=== PATIENT | female | born 1985 | race Caucasian/White ===

== ENCOUNTER → 2018-03-09 | Outpatient (REF) | payer BC, OTHER ==
[2018-03-09 13:54] LABS: HCG, SERUM QUANTITATIVE 752 MIU/ML
== END ==
LOC: M LAB REF 12:54
DX: O36.80X0 Pregnancy with inconclusive fetal viability, not applicable or unspecified (principal); Z3A.00 Weeks of gestation of pregnancy not specified
CPT/HCPCS: 84702

== ENCOUNTER → 2018-04-13 | Outpatient (REF) | payer OTHER ==
[2018-04-13 15:35] LABS: HEMATOCRIT 37.6 % (36.0-47.0); HEMOGLOBIN 12.7 g/dl (12.0-15.5); MEAN CORPUSCULAR HEMOGLOBIN 30.2 pg (27.0-33.0); MEAN CORPUSCULAR HGB CONC 33.8 g/dl (32.0-36.5); MEAN CORPUSCULAR VOLUME 89.5 fl (80.0-96.0); PLATELET COUNT, AUTOMATED 281 10^3/uL (150-450); RED CELL DISTRIBUTION WIDTH 12.5 % (11.5-14.5); WHITE BLOOD COUNT 9.7 10^3/uL (4.0-10.0)
[2018-04-13 16:12] LABS: HCG, SERUM QUANTITATIVE 112843 MIU/ML
[2018-04-16 14:08] LABS: HBsAg Prenatal NEGATIVE (NEGATIVE)
[2018-04-16 14:09] LABS: HEPATITIS C VIRUS ABY INDEX 0.1 INDEX (<0.8)
[2018-04-16 15:00] LABS: RUBELLA IgG QUALITATIVE IMMUNE (IMMUNE)
[2018-04-16 15:29] LABS: HIV 1&2 SCREEN CENTAUR NEGATIVE (NEGATIVE)
== END ==
LOC: M LAB REF 15:13
DX: Z34.81 Encounter for supervision of other normal pregnancy, first trimester (principal)

== ENCOUNTER → 2018-06-12 | Outpatient (REF) | payer OTHER ==
[2018-06-12 17:43] LABS: CHLAMYDIA DNA AMPLIFICATION NEGATIVE (NEGATIVE); GC DNA AMPLIFICATION NEGATIVE (NEGATIVE)
== END ==
LOC: M LAB REF 12:57
DX: Z34.82 Encounter for supervision of other normal pregnancy, second trimester (principal); Z36.89 Encounter for other specified antenatal screening

== ENCOUNTER → 2018-08-21 | Outpatient (CLI) | payer BC, OTHER ==
[2018-08-21 10:12] LABS: HEMATOCRIT 29.5 % (36.0-47.0); HEMOGLOBIN 9.9 g/dl (12.0-15.5); MEAN CORPUSCULAR HEMOGLOBIN 30.2 pg (27.0-33.0); MEAN CORPUSCULAR HGB CONC 33.6 g/dl (32.0-36.5); MEAN CORPUSCULAR VOLUME 89.9 fl (80.0-96.0); PLATELET COUNT, AUTOMATED 230 10^3/uL (150-450); RED BLOOD COUNT 3.28 10^6/uL (4.00-5.40); RED CELL DISTRIBUTION WIDTH 12.8 % (11.5-14.5)
[2018-08-21 10:37] LABS: GLUCOSE CHALLENGE TEST 1 HOUR 101 MG/DL (LESS THAN 140)
[2018-08-22 09:13] LABS: AB SCREEN (INDIRECT COOMBS)VIS 1 1
== END ==
LOC: M LAB 08:39
DX: Z34.82 Encounter for supervision of other normal pregnancy, second trimester (principal)
CPT/HCPCS: 82950

== ENCOUNTER → 2018-10-09 | Outpatient (REF) | payer OTHER | LOC: M LAB REF 13:02 | PROVIDERS: ATTEND Obstetrics & Gynecology | DX: Z34.83 Encounter for supervision of other normal pregnancy, third trimester (principal) ==

== ENCOUNTER 2018-11-11 05:31 | Inpatient (IN) | payer BC, OTHER ==
[~2018-11-11] VITALS: Ht 160 cm; Wt 92.7 kg
[2018-11-11] MEDS ORDERED: PRENTAB55 PO (05:37)
[2018-11-11 05:47] VITALS: BP 143/82
[2018-11-11] MEDS ORDERED: LACTATED RINGER'S 1000 ML IV STA (06:24)
[2018-11-11 06:53] LABS: HEMATOCRIT 35.4 % (36.0-47.0); MEAN CORPUSCULAR HGB CONC 33.9 g/dl (32.0-36.5); MEAN CORPUSCULAR VOLUME 88.5 fl (80.0-96.0); PLATELET COUNT, AUTOMATED 231 10^3/uL (150-450); WHITE BLOOD COUNT 18.5 10^3/uL (4.0-10.0)
[2018-11-11] MEDS ORDERED: FENTANYL 2MCG/ML ROPIVACAINE 0.2% IN 0.9% NACL 100ML IVBAG As Ordered ONE (07:07)
[2018-11-11 07:53] VITALS: BP 139/83
[2018-11-11] MEDS ORDERED: OXYTOCIN 30 UNITS IN 0.9% NaCl 500ML IV BAG (J2590) As Ordered ONE (08:03)
[2018-11-11] MEDS ORDERED: LR 1,000 ML IV SCH (09:44)
[2018-11-11] MEDS ORDERED: OXYTOCIN DRIP 30 UNITS in APPROPRIATE DILUENT 1 EA IV SCH (09:46)
[2018-11-11 09:56] VITALS: BP 135/64
[2018-11-11 09:56] LABS: CORD GAS ABE A -5.6; CORD GAS HCO3 A 22.9 MEQ/L; CORD GAS O2 SAT A 47.5 %; CORD GAS PCO2 A 55.8 mmHg; CORD GAS PH A 7.231 UNITS; CORD GAS PO2 A 24.2 mmHg; CORD GAS SBC A 18.7 MEQ/L; CORD GAS TCO2 A 24.6 MEQ/L
[2018-11-11 09:57] LABS: CORD GAS HCO3 V 18.5 MEQ/L; CORD GAS O2 SAT V 67.8 %; CORD GAS PCO2 V 37.5 mmHg; CORD GAS PH V 7.31 UNITS; CORD GAS PO2 V 28.9 mmHg; CORD GAS SBC V 18.2 MEQ/L; CORD GAS TCO2 V 19.6 MEQ/L
[2018-11-11] MEDS ORDERED: MEASLES,MUMPS,RUBELLA VACCINE INJ (MMR-II) (90707) SC SCH (10:00)
[2018-11-11] MEDS ORDERED: RHOGAM 300 MCG (1500 IU) INJ (J2790) IM SCH (10:00)
[2018-11-11] MEDS ORDERED: MOM 30ML SUSPENSION UDC PO PRN (10:00)
[2018-11-11] MEDS ORDERED: DIBUCAINE 1% OINTMENT 30GM TOP PRN (10:00)
[2018-11-11] MEDS ORDERED: ACETAMINOPHEN 500 MG TAB PO PRN (10:00)
[2018-11-11] MEDS ORDERED: METHYLERGONOVINE MALEATE 0.2 MG TAB PO PRN (10:00)
[2018-11-11] MEDS ORDERED: ANUSOL HC CREAM 30GM TOP PRN (10:00)
[2018-11-11 10:14] VITALS: BP 112/96
[2018-11-11] MEDS: IBUPROFEN 800 MG TAB PO PRN ×2 (12:50→20:43)
[2018-11-11 13:29] VITALS: BP 118/57
[2018-11-11 18:54] VITALS: BP 133/71
[2018-11-11] MEDS: DOCUSATE SODIUM 100 MG CAP PO SCH (20:40)
--- NOTE | 2018-11-11 21:42 | DN ---
DATE OF DELIVERY: 11/11/2018 TIME OF : 0924 hours. GENDER: Female. SCORES: 9 and 9. WEIGHT: 3930 grams or 8 pounds 12 ounces. LACERATIONS: None. ESTIMATED BLOOD LOSS: 300 mL. ANESTHESIA: None. COUNTS: Five laparotomy sponges accounted for prior to and after delivery. Two sharps removed from the delivery field. DELIVERY NOTE: On 11/11/2018, at 0924 hours, Mrs. Phillips, a 32-year-old, 4, now para 4, had a spontaneous vaginal delivery of a live born female , scores 9 and 9, weight was 8 pounds 12 ounces or 3930 grams. Head was delivered occiput anterior (OA) over intact perineum. There was a nuchal cord which was manually reduced followed by delivery of the shoulders and corpus. was handed to the mom with a good cry. Cord was then clamped times two and was cut. Cord gases were obtained. Placenta was then drained and delivered grossly intact. A premixed bag of 500 mL of normal saline with 30 units of Pitocin was bolused along with uterine massage until the uterus was firm. On inspection, cervix, vagina, and perineum was grossly intact and hemostatic. Mother and baby recovering in stable condition. The patient has decided to name her daughter
--- NOTE | 2018-11-12 02:19 | HPE ---
DATE OF ADMISSION: 11/11/2018 REASON FOR ADMISSION: Active labor. HISTORY OF PRESENT ILLNESS: This patient is a 32-year-old 4, para 3 who presents at 39 weeks, 6 days estimated gestational age with complaints of contractions. She reports worsening of contractions throughout the morning that have increased in intensity and frequency. She reports active movement. She denies any vaginal bleeding or leakage of fluid. Her course has been unremarkable. She initiated care in the first trimester with [facility] and has been appropriate throughout. PAST MEDICAL HISTORY: None. PAST SURGICAL HISTORY: She has had two loop electrosurgical excision procedure (LEEPs). PAST OBSTETRICAL HISTORY: She is a 4, para 3. She has had three uncomplicated vaginal deliveries. She is proven to 9 pounds. MEDICATIONS: Her medications include: - vitamins ALLERGIES: She has no known drug allergies. SOCIAL HISTORY: She denies any alcohol, tobacco or drug use in her . PHYSICAL EXAMINATION: On physical examination, VITAL SIGNS: Her blood pressure is slightly elevated. She is afebrile. She has category 1 heart tracing with contractions on tocometer. GENERAL APPEARANCE: Well-appearing in no acute distress. LUNGS: Clear to auscultation bilaterally. CARDIOVASCULAR: Heart regular rate and rhythm. ABDOMEN: Her abdomen is soft, gravid and nontender. Estimated weight (EFW) is 3800 grams. CERVICAL EXAMINATION: She was 5 cm dilated, completely effaced, 0 station. ASSESSMENT: 1. This patient is a 32-year-old 4, para 3 at 39 weeks and 6 days estimated gestational age in active labor. 2. Reassuring status. PLAN: 1. Admit to labor and delivery, complete blood count (CBC), RPR, type and screen. 2. The patient is a good candidate for an epidural. 3. Anticipate spontaneous vaginal delivery.
--- NOTE | 2018-11-12 05:42 | NUR ---
L&D Note: S: Doing well w/o complaints. + voids, + ambulation and pain well controlled. O: vss, AF gen: well appearing abd: soft, nttp, FF@U-2 ext: neg calf tenderness A/P: PPD#1 s/p - recovering in stable condition -continue routine care -d/c plans for tomorrow Tessa Hoffman MD
[2018-11-12 06:00] VITALS: BP 111/57
[2018-11-12] MEDS: IBUPROFEN 800 MG TAB PO PRN (08:38)
[2018-11-12] MEDS: DOCUSATE SODIUM 100 MG CAP PO SCH (08:38)
[2018-11-12] MEDS ORDERED: PRENATAL VITAMINS CHEWABLE TABLET PO SCH (09:00)
[2018-11-12] MEDS ORDERED: COLA100C5 PO (09:08)
[2018-11-12] MEDS ORDERED: MOM30SS PO (09:08)
[2018-11-12] MEDS ORDERED: MAPA500T2 PO (09:09)
[2018-11-12] MEDS ORDERED: IBUP-1114 PO ×2 (09:10→09:11)
== END 2018-11-12 14:20 | disposition home or self-care (01) | DRG 560 ==
LOC: M LDO 05:31 → M LDI 05:49 → M OBS 12:13
PROVIDERS: ADMIT Obstetrics & Gynecology; ATTEND Obstetrics & Gynecology
PROC: 10E0XZZ Delivery of Products of Conception, External Approach (ICD-10-PCS; principal; 2018-11-11)
DX: O69.82X0 Labor and delivery complicated by other cord entanglement, without compression, not applicable or unspecified (principal); Z37.0 Single live birth; Z3A.39 39 weeks gestation of pregnancy

== ENCOUNTER → 2019-07-02 | Outpatient (REF) | payer OTHER ==
[~2019-07-02] MED LIST: COLA100C5 PO; IBUP-1114 PO; MAPA500T2 PO; MOM30SS PO; PRENTAB55 PO
[2019-07-05 14:22] LABS: HPV HYBRID CAPTURE II Negative (Negative)
== END ==
LOC: M LAB REF 12:52
PROVIDERS: ATTEND Specialist
DX: Z12.4 Encounter for screening for malignant neoplasm of cervix (principal)
CPT/HCPCS: 87624; G0123

== ENCOUNTER → 2019-08-02 | Outpatient (CLI) | payer OTHER | LOC: M SMT 12:58 | PROVIDERS: ATTEND Specialist | DX: Z34.81 Encounter for supervision of other normal pregnancy, first trimester (principal); Z3A.00 Weeks of gestation of pregnancy not specified ==

== ENCOUNTER → 2019-08-22 | Outpatient (REF) | payer OTHER | LOC: M LAB REF 12:01 | PROVIDERS: ATTEND Nurse Practitioner Family | DX: J02.9 Acute pharyngitis, unspecified (principal) ==

== ENCOUNTER → 2019-09-19 | Outpatient (CLI) | payer OTHER ==
[2019-09-20 10:09] LABS: BASO % 0.4 % (0.0-1.0); EOS # 0.2 10^3/uL (0.0-0.5); EOS % 1.8 % (0.0-3.0); HEMATOCRIT 36.9 % (36.0-47.0); HEMOGLOBIN 11.8 g/dl (12.0-15.5); LYMPH # 1.7 10^3/uL (1.5-5.0); LYMPH % 20.8 % (24.0-44.0); MEAN CORPUSCULAR HEMOGLOBIN 28.9 pg (27.0-33.0); MEAN CORPUSCULAR VOLUME 90.2 fl (80.0-96.0); MONO # 0.7 10^3/uL (0.0-0.8); MONO % 8.6 % (0.0-5.0); NEUTROPHILS # 5.5 10^3/uL (1.5-8.5); NEUTROPHILS % 67.9 % (36.0-66.0); PLATELET COUNT, AUTOMATED 250 10^3/uL (150-450); RED BLOOD COUNT 4.09 10^6/uL (4.00-5.40); WHITE BLOOD COUNT 8.1 10^3/uL (4.0-10.0)
[2019-09-20 11:17] LABS: CHLAMYDIA DNA AMPLIFICATION NEGATIVE (NEGATIVE); GC DNA AMPLIFICATION NEGATIVE (NEGATIVE)
[2019-09-20 11:32] LABS: HEPATITIS C VIRUS ABY INDEX 0.2 INDEX (<0.8); HIV 1&2 SCREEN CENTAUR NEGATIVE (NEGATIVE); RUBELLA IgG QUALITATIVE EQUIVOCAL (IMMUNE)
== END ==
LOC: M PLALAB 14:40
PROVIDERS: ATTEND Advanced Practice Midwife
DX: Z33.1 Pregnant state, incidental (principal)

== ENCOUNTER → 2019-10-10 | Outpatient (CLI) | payer BC, OTHER ==
--- NOTE | 2019-10-11 02:11 | REP ---
Clinical: Anatomical evaluation. Comparison: None . Findings: Examination demonstrates a single live intrauterine in cephalic presentation. motion is identified by technologist. Placenta is noted anterior and grade I without evidence for placenta previa or abruption. Amniotic fluid volume is normal. Cervix measures 4.6 cm in length and appears closed. No evidence for nuchal cord. Gestational age by LMP 19 weeks 5 days with JESSIE 02/29/2020 . Gestational age by current measurements 20 weeks 2 day with JESSIE 02/25/2020 . FHR equals 146 beats per minute. BPD 4.7 cm 20 weeks 0 days HC 18.0 cm 20 weeks 3 days AC 15.2 cm 20 weeks 3 days FL 3.2 cm 20 weeks 0 days HL 3.1 cm 20 weeks 3 days HC/AC ratio 1.18 Estimated weight 340 grams ( 66 percentile). Anatomical assessment demonstrates normal structures including cranium, choroid plexus, cavum, cerebellum/posterior fossa, facial features, lungs, four-chamber heart/ventricular outflow tracts, diaphragm, stomach, cord insertion/three-vessel cord, kidneys/bladder, spine, and extremities. Impression: 1. Single live intrauterine in cephalic presentation demonstrating appropriate interval growth. 2. Anatomical assessment is complete and normal. Electronically Signed by Andrea Campbell MD 10/11/2019 02:03 A
== END ==
LOC: M RAD 17:45
PROVIDERS: ATTEND Advanced Practice Midwife
DX: Z33.1 Pregnant state, incidental (principal); Z3A.20 20 weeks gestation of pregnancy

== ENCOUNTER → 2019-12-18 | Outpatient (REF) | payer OTHER ==
[2019-12-18 13:42] LABS: HEMATOCRIT 34.5 % (36.0-47.0); HEMOGLOBIN 11.3 g/dl (12.0-15.5); MEAN CORPUSCULAR HEMOGLOBIN 29.8 pg (27.0-33.0); MEAN CORPUSCULAR HGB CONC 32.8 g/dl (32.0-36.5); PLATELET COUNT, AUTOMATED 221 10^3/uL (150-450); RED BLOOD COUNT 3.79 10^6/uL (4.00-5.40); WHITE BLOOD COUNT 9.3 10^3/uL (4.0-10.0)
[2019-12-18 13:49] LABS: ALBUMIN 2.8 GM/DL (3.2-5.2); ALT/SGPT 14 U/L (12-78); BILIRUBIN,DIRECT < 0.1 MG/DL (0.0-0.2); BILIRUBIN,TOTAL 0.2 MG/DL (0.2-1.0); GLUCOSE CHALLENGE TEST 1 HOUR 78 MG/DL (LESS THAN 140); TOTAL PROTEIN 6.4 GM/DL (6.4-8.2)
== END ==
LOC: M PLALAB 08:37
PROVIDERS: ATTEND Advanced Practice Midwife
DX: Z34.82 Encounter for supervision of other normal pregnancy, second trimester (principal)
CPT/HCPCS: 80076; 82239; 82950; 85027; 86850; 86900; 86901; J2790

== ENCOUNTER → 2020-02-04 | Outpatient (REF) | payer OTHER | LOC: M SFHCWAGY 17:27 | PROVIDERS: ATTEND Advanced Practice Midwife | DX: Z36.89 Encounter for other specified antenatal screening (principal) ==

== ENCOUNTER 2020-02-27 15:21 | Inpatient (IN) | payer BC, OTHER ==
[~2020-02-27] VITALS: Ht 160 cm; Wt 91.0 kg
[2020-02-27] MEDS ORDERED: OXYTOCIN 30 UNITS IN 0.9% NaCl 500ML IV BAG (J2590) As Ordered ONE (15:28)
[2020-02-27 15:46] VITALS: BP 136/87
--- NOTE | 2020-02-27 15:54 | HPE ---
DATE OF ADMISSION: 02/27/2020 HISTORY: 34-year-old, (G) 5, para (P) 4 female, at 39-5/7 weeks gestation by 9 week ultrasound, estimated date of confinement (EDC) 02/29/2020, presents to with regular contractions every 2-3 minutes for the last several hours. Contractions increased in intensity and she came the hospital. She denies vaginal bleeding. There is good movement. COURSE: The patient initiated care at [facility]. She had no complications. OBSTETRICAL HISTORY: 1. 2009, vaginal delivery, 7 pound 4 ounce female infant. 2. 2013, vaginal delivery, 8 pound 7 ounce female . 3. 2015, vaginal delivery, 9 pound zero ounce male infant. 4. 2018, vaginal delivery, 8 pound 12 ounce female . MEDICAL HISTORY: Noncontributory. SURGICAL HISTORY: 1. Loop electrosurgical excision procedure (LEEP) with biopsy. ALLERGIES: NONE. SOCIAL HISTORY: The patient lives in [place]. She denies cigarettes, alcohol, or drug use during . FAMILY HISTORY: Noncontributory. PHYSICAL EXAMINATION: Blood pressure 134/74, pulse 84. Afebrile. She appears uncomfortable. HEAD/NECK EXAM: Normal. LUNGS: Clear. HEART: Regular rate and rhythm. ABDOMEN: Nontender, gravid. heart tones Category 1. STERILE VAGINAL EXAM: 10 cm, bulging membranes, vertex, zero station. EXTREMITIES: Nontender. CONTRACTIONS: Every 2-3 minutes. LABS: Blood type is A negative. GBS negative. ASSESSMENT: 34-year-old, 5, para 4 female, at 39-5/7 weeks gestation who presents in active labor. PLAN: The patient is admitted on 02/27/2020.
[2020-02-27] MEDS ORDERED: METHYLERGONOVINE MALEATE 0.2 MG TAB PO PRN (16:00)
[2020-02-27] MEDS ORDERED: MEASLES,MUMPS,RUBELLA VACCINE INJ (MMR-II) (90707) SC SCH (16:00)
[2020-02-27] MEDS ORDERED: DOCUSATE SODIUM 100 MG CAP PO PRN (16:00)
[2020-02-27] MEDS ORDERED: IBUPROFEN 600 MG TAB PO PRN (16:00)
[2020-02-27] MEDS ORDERED: ACETAMINOPHEN 500 MG TAB PO PRN (16:00)
[2020-02-27] MEDS ORDERED: ONDANSETRON 4MG/2ML VIAL IV PRN (16:00)
[2020-02-27] MEDS ORDERED: RHOGAM 300 MCG (1500 IU) INJ (J2790) IM SCH (16:00)
[2020-02-27] MEDS ORDERED: DIBUCAINE 1% OINTMENT 30GM TOP PRN (16:00)
[2020-02-27] MEDS ORDERED: ACETAMINOPHEN TAB 650MG DOSE (2X325MG) PO PRN (16:00)
[2020-02-27] MEDS ORDERED: OXYTOCIN DRIP 30 UNITS in IV 1 EA IV ONE (16:00)
[2020-02-27 16:32] VITALS: BP 132/74
[2020-02-27 16:47] VITALS: BP 135/92
[2020-02-27 18:31] LABS: HEMATOCRIT 36.4 % (36.0-47.0); HEMOGLOBIN 12.2 g/dl (12.0-15.5); MEAN CORPUSCULAR HEMOGLOBIN 30.1 pg (27.0-33.0); MEAN CORPUSCULAR HGB CONC 33.5 g/dl (32.0-36.5); MEAN CORPUSCULAR VOLUME 89.9 fl (80.0-96.0); PLATELET COUNT, AUTOMATED 235 10^3/uL (150-450); RED BLOOD COUNT 4.05 10^6/uL (4.00-5.40)
[2020-02-27 18:40] VITALS: BP 145/78
[2020-02-27] MEDS: IBUPROFEN 800 MG TAB PO PRN (23:08)
[2020-02-28] MEDS: ANUSOL HC CREAM 30GM TOP SCH ×3 (00:32→20:51)
[2020-02-28 06:00] VITALS: BP 127/56
[2020-02-28] MEDS: PRENATAL VITAMINS CHEWABLE TABLET PO SCH (08:51)
[2020-02-28 18:00] VITALS: BP 127/68
[2020-02-28] MEDS: IBUPROFEN 800 MG TAB PO PRN (21:10)
[2020-02-29 06:03] VITALS: BP 133/72
[2020-02-29] MEDS: PRENATAL VITAMINS CHEWABLE TABLET PO SCH (09:51)
[2020-02-29] MEDS: ANUSOL HC CREAM 30GM TOP SCH (09:53)
[2020-02-29] MEDS ORDERED: DOCUSATE SODIUM 100 MG CAP PO ONE (10:00)
--- NOTE | 2020-03-05 12:02 | DN ---
DATE: 02/27/2020 PREDELIVERY DIAGNOSIS: A 39-5/7 weeks gestation, labor. POSTDELIVERY DIAGNOSIS: Delivered. PROCEDURE: Spontaneous vaginal delivery. WEB PRODUCTION ARTIST: Dr. Eugenio Arciniega ANESTHESIA: None. ESTIMATED BLOOD LOSS: 300 mL. FINDINGS: An 8-pound 4-pounce male , scores 8 and 9. DELIVERY SUMMARY: After a 10-minute second stage, the patient had spontaneous delivery of an 8-pound 4-ounce male . No delivery anesthesia. There was no nuchal cord. The shoulders delivered with ease. The infant was handed to the mother and cried immediately. The cord was doubly clamped and cut. The placenta delivered spontaneously and appeared to be intact. The patient received intravenous (IV) Pitocin immediately after delivery of the placenta. There were no vaginal lacerations present. Sponge counts were correct.
== END 2020-02-29 13:20 | disposition home or self-care (01) | DRG 560 ==
LOC: M LDI 15:21 → M OBS 18:46
PROVIDERS: ADMIT Specialist; ATTEND Specialist
PROC: 10E0XZZ Delivery of Products of Conception, External Approach (ICD-10-PCS; principal; 2020-02-27)
DX: O80 Encounter for full-term uncomplicated delivery (principal); Z37.0 Single live birth; Z3A.39 39 weeks gestation of pregnancy

== ENCOUNTER → 2021-02-10 | Outpatient (REF) | payer BC, OTHER | LOC: M SFHCWAGY 17:15 | PROVIDERS: ATTEND Advanced Practice Midwife | DX: Z12.4 Encounter for screening for malignant neoplasm of cervix (principal) | CPT/HCPCS: 87624; G0123 ==

== ENCOUNTER → 2022-08-03 | Outpatient (REF) | payer OTHER | LOC: M PLALAB 15:41 | PROVIDERS: ATTEND Nurse Practitioner Family | DX: Z12.4 Encounter for screening for malignant neoplasm of cervix (principal) | CPT/HCPCS: 87624; G0123 ==

== ENCOUNTER → 2024-12-27 | Outpatient (CLI) | payer BC, OTHER ==
[2024-12-27 13:00] LABS: BASO # 0.1 10^3/uL (0.0-0.2); BASO % 0.7 % (0.0-1.0); EOS # 0.2 10^3/uL (0.0-0.5); EOS % 2.6 % (0.0-3.0); HEMATOCRIT 38.8 % (36.0-47.0); HEMOGLOBIN 12.7 g/dl (12.0-15.5); LYMPH # 1.8 10^3/uL (1.5-5.0); LYMPH % 24.2 % (24.0-44.0); MEAN CORPUSCULAR HEMOGLOBIN 29.6 pg (27.0-33.0); MEAN CORPUSCULAR HGB CONC 32.7 g/dl (32.0-36.5); MEAN CORPUSCULAR VOLUME 90.4 fl (80.0-96.0); MONO # 0.7 10^3/uL (0.0-0.8); MONO % 8.8 % (2.0-8.0); NEUTROPHILS # 4.7 10^3/uL (1.5-8.5); NEUTROPHILS % 63.6 % (36.0-66.0); PLATELET COUNT, AUTOMATED 260 10^3/uL (150-450); RED BLOOD COUNT 4.29 10^6/uL (4.00-5.40); WHITE BLOOD COUNT 7.4 10^3/uL (4.0-10.0)
[2024-12-27 13:20] LABS: ALKALINE PHOSPHATASE 38 U/L (35-104); ALT/SGPT 21 U/L (7.0-40); AST/SGOT 13 U/L (<34); BILIRUBIN,TOTAL 0.9 MG/DL (0.3-1.2); BLOOD UREA NITROGEN 15 MG/DL (9-23); CALCIUM LEVEL 8.9 MG/DL (8.5-10.1); CARBON DIOXIDE LEVEL 28 MMOL/L (20-31); CHLORIDE LEVEL 104 MMOL/L (98-107); CREATININE FOR GFR 0.72 MG/DL (0.55-1.30); GLOMERULAR FILTRATION RATE > 60.0 (>60); GLUCOSE, FASTING 79 MG/DL (60-100); MAGNESIUM LEVEL 1.9 MG/DL (1.8-2.4); POTASSIUM SERUM 3.7 MMOL/L (3.5-5.1); SODIUM LEVEL 139 MMOL/L (136-145); TOTAL PROTEIN 7.3 G/DL (5.7-8.2)
== END ==
LOC: M WUC 09:59
PROVIDERS: ATTEND Nurse Practitioner Family
DX: G51.4 Facial myokymia (principal)

== ENCOUNTER → 2025-05-08 | Outpatient (CLI) | payer BC ==
[2025-05-08 15:00] LABS: BASO # 0.1 10^3/uL (0.0-0.2); BASO % 0.6 % (0.0-1.0); EOS # 0.2 10^3/uL (0.0-0.5); EOS % 2.6 % (0.0-3.0); LYMPH # 1.8 10^3/uL (1.5-5.0); LYMPH % 21.7 % (24.0-44.0); MONO # 0.8 10^3/uL (0.0-0.8); MONO % 9.5 % (2.0-8.0); NEUTROPHILS # 5.3 10^3/uL (1.5-8.5); NEUTROPHILS % 65.2 % (36.0-66.0); PLATELET COUNT, AUTOMATED 319 10^3/uL (150-450)
[2025-05-08 15:16] LABS: IRON (FE) 193 UG/DL (50-170); PERCENT SATURATION 55.3 % (13.2-45.0)
[2025-05-08 15:17] LABS: ALT/SGPT 20 U/L (7.0-40); AST/SGOT 17 U/L (<34); CALCIUM LEVEL 8.9 MG/DL (8.5-10.1); CARBON DIOXIDE LEVEL 25 MMOL/L (20-31); CHLORIDE LEVEL 103 MMOL/L (98-107); CHOLESTEROL LEVEL 191 MG/DL (<200); CHOLESTEROL RISK RATIO 2.82 (<5); CREATININE FOR GFR 0.79 MG/DL (0.55-1.30); GLOMERULAR FILTRATION RATE > 90.0 (>60); LDL CHOLESTEROL 102.8 MG/DL (<100); NON-HDL-C 123.4 MG/DL; POTASSIUM SERUM 4.0 MMOL/L (3.5-5.1); SODIUM LEVEL 137 MMOL/L (136-145); TRIGLYCERIDES LEVEL 103 MG/DL (<150)
[2025-05-08 15:30] LABS: ESTIMATED AVERAGE GLUCOSE 108.0 MG/DL (60-110)
[2025-05-08 17:27] LABS: HIV 1&2 SCREEN NEGATIVE (NEGATIVE)
[2025-05-08 17:34] LABS: HEPATITIS C VIRUS ABY INDEX < 0.02 INDEX (<0.8)
[2025-05-13 13:10] LABS: T PALLIDUM ANTIBODIES Negative (Negative)
== END ==
LOC: M LAB 05-07 14:11
PROVIDERS: ATTEND Nurse Practitioner Family
DX: R25.3 Fasciculation (principal); E66.3 Overweight

== ENCOUNTER → 2025-06-13 | Outpatient (REF) | payer BC ==
[2025-06-13 13:23] LABS: IRON (FE) 88.0 UG/DL (50-170); PERCENT SATURATION 27.7 % (13.2-45.0)
== END ==
LOC: M LAB REF 11:37
PROVIDERS: ATTEND Nurse Practitioner Family
DX: R79.89 Other specified abnormal findings of blood chemistry (principal)